=== PATIENT | male | born 1965 | race Caucasian/White ===

== ENCOUNTER 2023-03-31 15:32 | Emergency (ER) | payer OTHER ==
[~2023-03-31] VITALS: Ht 172.7 cm; Wt 73.0 kg
[2023-03-31] MEDS ORDERED: P20 PO (17:38)
[2023-03-31] MEDS ORDERED: HYDR453.3 TP (17:38)
[2023-03-31] MEDS ORDERED: DIPH25CA83 PO (17:38)
[2023-03-31 18:16] VITALS: BP 128/70
== END 2023-03-31 18:18 | disposition home or self-care (01) ==
LOC: ER 15:32
DX: L50.9 Urticaria, unspecified (principal); Z88.0 Allergy status to penicillin
CPT/HCPCS: 99283

== ENCOUNTER 2023-07-20 14:35 | Emergency (ER) | payer MEDICAID, OTHER ==
[~2023-07-20] VITALS: Ht 172.7 cm; Wt 72.0 kg
[~2023-07-20 14:35] MED LIST: DIPH25CA83 PO; HYDR453.3 TP; P20 PO
[2023-07-20 14:46] VITALS: O2SAT 99
[2023-07-20] MEDS ORDERED: PREDNISONE 20MG TABLET PO ONE (15:45)
[2023-07-20] MEDS ORDERED: DIPHENHYDRAMINE 25MG CAPSULE PO ONE (15:45)
[2023-07-20] MEDS ORDERED: FAMOTIDINE 20MG TABLET PO ONE (15:45)
[2023-07-20] MEDS ORDERED: P20 MT (17:41)
[2023-07-20] MEDS ORDERED: DIPH25CA83 MT (17:41)
[2023-07-20] MEDS ORDERED: EPIN0.3P3 IM (17:41)
[2023-07-20 17:59] VITALS: BP 149/80; PULSE 69; RESP 20; TEMP 98.7
== END 2023-07-20 18:01 | disposition home or self-care (01) ==
LOC: ER 14:35
DX: T78.40XA Allergy, unspecified, initial encounter (principal); X58.XXXA Exposure to other specified factors, initial encounter
CPT/HCPCS: 99284; Q0163; J7512

== ENCOUNTER 2024-08-23 21:19 | Emergency (ER) | payer MEDICAID ==
[~2024-08-23] VITALS: Ht 172.7 cm; Wt 72.3 kg
[~2024-08-23 21:19] MED LIST changes: +DIPH25CA83 MT; +EPIN0.3P3 IM; +P20 MT
[2024-08-23 21:39] VITALS: TEMP 98.2; O2SAT 98
[2024-08-24] MEDS ORDERED: IBUPROFEN 600MG TABLET PO ONE
[2024-08-24] MEDS ORDERED: HYDR453.3 TP (00:28)
[2024-08-24 01:46] VITALS: O2SAT 100
[2024-08-24 01:49] VITALS: BP 138/82; PULSE 58; RESP 16
[2024-08-24] MEDS: IBUPROFEN 600MG TABLET PO NR (01:49)
== END 2024-08-24 01:51 | disposition home or self-care (01) ==
LOC: ER 21:19
DX: M25.511 Pain in right shoulder (principal); Z98.890 Other specified postprocedural states; Z88.0 Allergy status to penicillin
CPT/HCPCS: 73030; 99283